=== PATIENT | female | born 1985 | race Caucasian/White ===

== ENCOUNTER 2017-01-16 00:17 | Emergency (ER) | payer OTHER ==
[~2017-01-16] VITALS: Ht 162.6 cm; Wt 85.0 kg
[2017-01-16 00:21] VITALS: Ht 162.6 cm; Wt 85.0 kg
[2017-01-16] MEDS ORDERED: SOD CHLORIDE 0.9% 1,000 ML IV STA (01:32)
[2017-01-16] MEDS ORDERED: ONDANSETRON 4 MG INJ IV STA (01:32)
[2017-01-16] MEDS ORDERED: HYDROmorphONE 1 MG/ML SYG IV STA (01:32)
[2017-01-16 02:08] LABS: ADD SCAN DIFF NO
[2017-01-16 02:09] LABS: BASOPHILS % 0.1 % (0.0-2.0); EOSINOPHILS # 0.2 10^3/ul (0.0-0.5); EOSINOPHILS % 2.1 % (0.0-7.0); HEMOGLOBIN 12.2 g/dl (12.0-16.0); MEAN CORPUSCULAR HEMOGLOBIN 28.6 pg (29.0-33.0); MEAN CORPUSCULAR VOLUME 86.7 fl (82.0-101.0); MEAN PLATELET VOLUME 10.3 fl (7.4-10.4); MONOCYTE # 0.9 10^3/ul (0.3-0.9); MONOCYTES % 12.8 % (0.0-11.0); NEUTROPHIL # 3.9 10^3/ul (1.6-7.5); NEUTROPHILS % 55.7 % (39.0-77.0); PLATELET COUNT 150 10^3/UL (140-415); RED BLOOD COUNT 4.27 10^6/ul (4.20-5.40); RED CELL DISTRIBUTION WIDTH 14.5 % (11.5-14.5)
[2017-01-16 02:28] LABS: ALBUMIN 4.2 g/dl (3.3-4.9); ALBUMIN/GLOBULIN RATIO 1.61; BILIRUBIN,INDIRECT 0.1 mg/dl (0-1.1); BILIRUBIN,TOTAL 0.1 mg/dl (0.2-1.3); CALCIUM 9.1 mg/dl (8.4-10.2); CREATININE 0.91 mg/dl (0.44-1.00); POTASSIUM 3.8 mmol/L (3.5-5.1); TOTAL PROTEIN 6.8 g/dl (6.1-8.1)
[2017-01-16] MEDS ORDERED: QUET100T PO (02:32)
[2017-01-16 02:58] LABS: ADD UMIC YES; UR AMORPHOUS CRYSTAL FEW /HPF (NONE SEEN); UR ASCORBIC ACID NEGATIVE (NEGATIVE); UR BILIRUBIN (Dip) NEGATIVE (NEGATIVE); UR BLOOD (Dip) NEGATIVE (NEGATIVE); UR CLARITY CLOUDY (CLEAR); UR COLOR YELLOW (YELLOW); UR GLUCOSE (Dip) NEGATIVE (NEGATIVE); UR KETONES (Dip) NEGATIVE (NEGATIVE); UR LEUKOCYTE ESTERASE (Dip) NEGATIVE Leu/ul (NEGATIVE); UR NITRITE (Dip) NEGATIVE (NEGATIVE); UR RBC 2 /HPF (0-5); UR SQUAMOUS EPITHELIAL CELL FEW /HPF (FEW); UR TOTAL PROTEIN (Dip) NEGATIVE (NEGATIVE); UR UROBILINOGEN (Dip) NEGATIVE (NEGATIVE)
[2017-01-16] MEDS ORDERED: SOD CHLORIDE 0.9% 100 ML ONE (02:59)
[2017-01-16] MEDS ORDERED: IOHEXOL 300MG/ML 150 ML BTL ONE (02:59)
--- NOTE | 2017-01-16 03:12 | RADRPT ---
PROCEDURE: CT Abdomen and pelvis with contrast. CLINICAL INDICATION: Abdominal pain. TECHNIQUE: CT scan of the abdomen and pelvis with contrast was performed on a multi-detector high -resolution CT scanner. The patient was scanned following the uncomplicated administration of 100 c c of Omnipaque 300 intravenous contrast. Coronal and sagittal reformatted images were obtained from the axial source images. Images were reviewed on a high-resolution PACS workstation. One or more of the following dose reduction techniques were used: - Automated exposure control. - Adjustment of the mA and/or kV according to patient size. - Use of iterative reconstruction technique. Exam CTD/vol = 15.75 mGy. Total exam DLP = 934.86 mGy-cm. COMPARISON: None. FINDINGS: Evaluation of the lung bases demonstrates mild bibasilar emphasis. There is a calcified granuloma w ithin the right lower lobe. Abdomen: The liver is normal in size. There is no focal mass or dilatation of the biliary tree. T he gallbladder is not distended. There is a 10 mm cystic lesion within the pancreatic tail. The sp carisa and bilateral adrenal glands are within normal limits. Bilateral kidneys are normal in size wi th symmetric enhancement. There is no focal mass, hydronephrosis or hydroureter. There is no retro peritoneal adenopathy. The abdominal aorta is of normal caliber. There is no abnormal bowel wall thickening or distension. There is no bowel obstruction or free air . A normal appendix is identified. There is no diverticulosis or diverticulitis. There is no asci ashleigh. Pelvis: The bladder is unremarkable. The uterus and adnexa are within normal limits. There is no significant pelvic adenopathy or free fluid. Evaluation of the osseous structures demonstrates no suspicious lytic or blastic lesion. IMPRESSION: Small cystic lesion within the pancreatic tail. Mild bibasilar atelectasis. Otherwise no acute abnormality identified within the abdomen and pelvis. .Luiz Aguirre MD, MD Date Time Electronically viewed and signed by .Luiz Aguirre MD, MD on 01/16/2017 03:12 .T/
[2017-01-16] MEDS ORDERED: HYDR-906 PO (04:17)
[2017-01-16] MEDS ORDERED: ONDA4TAB14 PO (04:17)
[2017-01-16] MEDS ORDERED: DIPH1TAB PO (04:17)
[2017-01-16] MEDS ORDERED: CIPR500T4 PO (04:17)
--- NOTE | 2017-01-16 04:19 | ERD ---
ER Documentation Chief Complaint Date/Time DATE: 01/16/17 TIME: 04:18 Chief Complaint BIBA - abd pain with vomiting at [facility] This a 31-year-old female complains of vomiting diarrhea today without blood or bile. She has pain in the mid abdominal region as well as described as crampy and nonradiating. Patient may have had a virus or bad food exposure. She denies any fever no chest pain shortness of breath. Nothing makes her pain worse or better. The pain is described as crampy ROS All systems reviewed and are negative except as per history of present illness. Medications Home Meds Active Scripts Hydrocodone/Acetaminophen (Snowflake 5-325 Tablet) 1 Each Tablet, 1 TAB PO Q6H Y for PAIN, #7 TAB Prov:RUPESH OJEDA. DO 01/16/17 Ciprofloxacin Hcl* (Ciprofloxacin Hcl*) 500 Mg Tablet, 500 MG PO BID for 3 Days , TAB Prov:THIERNO OJEDASTARMINDAS A. DO 01/16/17 Diphenoxylate HCl/Atropine (Lomotil 2.5-0.025 mg Tablet) 1 Each Tablet, 1 TAB PO QID Y for DIARRHEA, #10 TAB Prov:RUPESH OJEDA. DO 01/16/17 Ondansetron (Ondansetron Odt) 4 Mg Tab.rapdis, 4 MG PO Q6H Y for NAUSEA AND/OR VOMITING, #10 TAB Prov:SHAUN OJEDAS Rosangela. DO 01/16/17 Reported Medications Quetiapine Fumarate* (Seroquel*) 100 Mg Tablet, 100 MG PO DAILY, #30 TAB 01/16/17 Allergies Allergies: Coded Allergies: No Known Allergy (Unverified , 01/16/17) PMhx/Soc Medical and Surgical Hx: pt denies Surgical Hx History of Surgery: No Anesthesia Reaction: No Hx Neurological Disorder: No Hx Respiratory Disorders: No Hx Cardiac Disorders: No Hx Psychiatric Problems: Yes (schizophrenia) Hx Miscellaneous Medical Probl: No Hx Alcohol Use: No Hx Substance Use: No Hx Tobacco Use: No Smoking Status: Never smoker FmHx Family History: No coronary disease Physical Exam Vitals Vital Signs Date Time Temp Pulse Resp B/P Pulse Ox O2 Delivery O2 Flow Rate FiO2 01/16/17 03:10 78 16 105/52 99 Room Air 01/16/17 00:21 95.6 95 20 116/76 100 Physical Exam Const: Well-developed, well-nourished Head: Atraumatic, normocephalic Eyes: Normal Conjunctiva, PERRLA, EOMI, normal sclera, no nystagmus ENT: Normal External Ears, Nose and Mouth, moist mucus membranes. Neck: Full range of motion. No meningismus, no lymphadenopathy. Resp: Clear to auscultation bilaterally, no wheezing, rhonchi, rales Cardio: Regular rate and rhythm, no murmurs, S1 S2 present Abd: Soft, mild mid abdominal tenderness, non distended. Normal bowel sounds, no guarding or rebound, no pulsitile abdominal masses or bruits Skin: No petechiae or rashes, no ecchymosis , no maculopapular rash Back: No midline or flank tenderness Ext: No cyanosis, or edema, FROM x 4, normal inspection, neurovascularly intact x 4 Neur: Awake and alert, STR 5/5 x 4, sensation intact x 4, no focal findings, cerebellum intact Psych: Normal Mood and Affect Result Diagram: 01/16/1713401/16/17 013 Results 24 hrs Laboratory Tests Test 01/16/17 01:35 White Blood Count 7.010^3/ul Red Blood Count 4.2710^6/ul Hemoglobin 12.2g/dl Hematocrit 37.0% Mean Corpuscular Volume 86.7fl Mean Corpuscular Hemoglobin 28.6pg Mean Corpuscular Hemoglobin Concent 33.0g/dl Red Cell Distribution Width 14.5% Platelet Count 19207^3/UL Mean Platelet Volume 10.3fl Neutrophils % 55.7% Lymphocytes % 29.0% Monocytes % 12.8% Eosinophils % 2.1% Basophils % 0.1% Nucleated Red Blood Cells % 0.0/100WBC Neutrophils # 3.910^3/ul Lymphocytes # 2.010^3/ul Monocytes # 0.910^3/ul Eosinophils # 0.210^3/ul Basophils # 0.010^3/ul Nucleated Red Blood Cells # 0.010^3/ul Urine Color YELLOW Urine Clarity CLOUDY Urine pH 7.0 Urine Specific [place] 1.030 Urine Ketones NEGATIVEmg/dL Urine Nitrite NEGATIVEmg/dL Urine Bilirubin NEGATIVEmg/dL Urine Urobilinogen NEGATIVEmg/dL Urine Leukocyte Esterase NEGATIVELeu/ul Urine Microscopic RBC 2/HPF Urine Microscopic WBC 3/HPF Urine Squamous Epithelial Cells FEW/HPF Urine Amorphous Crystals FEW/HPF Urine Hemoglobin NEGATIVEmg/dL Urine Glucose NEGATIVEmg/dL Urine Total Protein NEGATIVEmg/dl Sodium Level 140mmol/L Potassium Level 3.8mmol/L Chloride Level 104mmol/L Carbon Dioxide Level 28mmol/L Anion Gap 12 Blood Urea Nitrogen 16mg/dl Creatinine 0.91mg/dl Glucose Level 64mg/dl Calcium Level 9.1mg/dl Total Bilirubin 0.1mg/dl Direct Bilirubin 0.00mg/dl Indirect Bilirubin 0.1mg/dl Aspartate Amino Transf (AST/SGOT) 27IU/L Alanine Aminotransferase (ALT/SGPT) 34IU/L Alkaline Phosphatase 89IU/L Total Protein 6.8g/dl Albumin 4.2g/dl Globulin 2.60g/dl Albumin/Globulin Ratio 1.61 Lipase 235U/L Current Medications Medications (Trade) Dose Ordered Sig/Anmol Route PRN Reason Start Time Stop Time Status Last Admin Dose Admin Sodium Chloride (NS) 1,000 ml @ 1,000 mls/hr Q1H STAT IV 01/16/17 01:32 01/16/17 02:31 DC 01/16/17 02:11 Hydromorphone HCl (Dilaudid) 1 mg ONCE STAT IV 01/16/17 01:32 01/16/17 01:33 DC 01/16/17 02:11 Ondansetron HCl 4 mg 4 mg ONCE STAT IV 01/16/17 01:32 01/16/17 01:33 DC 01/16/17 02:11 Sodium Chloride (NS) 100 ml @ ud STK-MED ONCE .ROUTE 01/16/17 02:59 01/16/17 03:00 DC 01/16/17 03:20 Iohexol (Omnipaque 300mg/ ml) 150 ml STK-MED ONCE .ROUTE 01/16/17 02:59 01/16/17 03:00 DC 01/16/17 03:20 Procedures/MDM PROCEDURE: CT Abdomen and pelvis with contrast. CLINICAL INDICATION: Abdominal pain. TECHNIQUE: CT scan of the abdomen and pelvis with contrast was performed on a multi-detector high-resolution CT scanner. The patient was scanned following the uncomplicated administration of 100 cc of Omnipaque 300 intravenous contrast. Coronal and sagittal reformatted images were obtained from the axial source images. Images were reviewed on a high-resolution PACS workstation. One or more of the following dose reduction techniques were used: - Automated exposure control. - Adjustment of the mA and/or kV according to patient size. - Use of iterative reconstruction technique. Exam CTD/vol = 15.75 mGy. Total exam DLP = 934.86 mGy-cm. COMPARISON: None. FINDINGS: Evaluation of the lung bases demonstrates mild bibasilar emphasis. There is a calcified granuloma within the right lower lobe. Abdomen: The liver is normal in size. There is no focal mass or dilatation of the biliary tree. The gallbladder is not distended. There is a 10 mm cystic lesion within the pancreatic tail. The spleen and bilateral adrenal glands are within normal limits. Bilateral kidneys are normal in size with symmetric enhancement. There is no focal mass, hydronephrosis or hydroureter. There is no retroperitoneal adenopathy. The abdominal aorta is of normal caliber. There is no abnormal bowel wall thickening or distension. There is no bowel obstruction or free air. A normal appendix is identified. There is no diverticulosis or diverticulitis. There is no ascites. Pelvis: The bladder is unremarkable. The uterus and adnexa are within normal limits. There is no significant pelvic adenopathy or free fluid. Evaluation of the osseous structures demonstrates no suspicious lytic or blastic lesion. IMPRESSION: Small cystic lesion within the pancreatic tail. Mild bibasilar atelectasis. Otherwise no acute abnormality identified within the abdomen and pelvis. .Luiz Aguirre MD, MD Date Time Electronically viewed and signed by .Luiz Aguirre MD, MD on 01/16/2017 03:12 .T/ CC: RUPESH OJEDA DO No acute process on CT scan and laboratory evaluations relatively unremarkable. Patient likely has a viral illness or has a bad food exposure will treat her accordingly Departure Diagnosis: Primary Impression: Vomiting and diarrhea Additional Impression: Abdominal pain Abdominal location: unspecified location Qualified Code: R10.9 - Abdominal pain, unspecified location Condition: Stable Patient Instructions: Abdominal Pain, Self-Care for Vomiting and Diarrhea RUPESH OJEDA DO Jan 16, 2017 04:19
[2017-01-16 04:42] VITALS: BP 106/61; PULSE 80; RESP 16; TEMP 97.5
== END 2017-01-16 04:42 | disposition home or self-care (01) ==
LOC: E/R 00:17
DX: R11.10 Vomiting, unspecified (principal); R19.7 Diarrhea, unspecified
CPT/HCPCS: 74177; 80053; 81001; 83690; 85025; J1170; J2405; J7030; Q9967; Z7610; 36415; 96361; 96374; 96375